=== PATIENT | female | born 1965 | race Caucasian/White ===

== ENCOUNTER → 2017-01-06 | Outpatient (CLI) | payer BC ==
--- NOTE | ~2017-01-06 | PUL ---
PATIENT'S NAME: LAI VELAZQUEZ [facility] AGE: 51 Y [address] ROOM: [place] [address] LOCATION: [facility] ADMIT DATE: 01/06/2017 Pulmonary DISCHARGE DATE: FAMILY PHYSICIAN: Linda Helm APRN ATTENDING PHYSICIAN: ROBERTO CALLES NAME OF PROCEDURE: Pulmonary Function Test DATE OF PROCEDURE: January 06, 2017 TECH: SHAYNA Garza REASON FOR EXAM: Reactive airway disease RESULTS: 1. FVC was 4.51 liters which is 108% of predicted and normal, FEV1 was 4.05 liters which is 122% of predicted and normal, and FEV1/FVC was 90% and normal. The flow volume curve did not reveal any significant airflow limitation. After bronchodilator administration FVC increased to 4.52 liters which is a less than 1% increase and FEV1 decreased to 3.85 liters. FEV1/FVC was 85%. 2. DLCO was 23.1 with an adjusted DLCO of 22.2 which is 69% of predicted and low. 3. Total lung capacity was 6.4 liters which is 107% of predicted and normal, and residual volume was 1.76 liters which is 82% of predicted and normal. PHYSICIAN INTERPRETATION: The patient has no airflow limitation and no significant bronchodilator response. Her diffusion capacity is mildly low. There is no evidence of restrictive lung disease. MD CLAYTON RAYA/hattie /[id number] dtt: 01/08/17 1624 , ROBERTO CALLES dtd: 01/08/17 1302
== END | disposition disaster alternative care site (69) ==
LOC: GRTH 13:00
DX: J45.909 Unspecified asthma, uncomplicated (principal)

== ENCOUNTER → 2017-02-02 | Outpatient (CLI) | payer BC ==
--- NOTE | ~2017-02-02 | ECHO ---
Transthoracic Echocardiography Report (TTE) Demographics Patient Name LAI VELAZQUEZ Date of Study 02/02/2017 Patient Number [id number] Visit Number [id number] Date of 1965 Room Number Accession Number [id number] Gender Female Age 51 year(s) Referring Volodymyr Escamilla Claims Manager Merlyn Richard RVT, Physician TABBY Hernandez Physician Interpreting [facility] Supervising Editor News Reel Physician Temi VELASQUEZ Supervising Ordering Physician Kimberley Hernandez MD/MLP Nurse Stress Glass Melt Operator Conclusions Contractility Score Summary Normal Left Ventricular contractility was noted. Summary The estimated left ventricular ejection fraction is 55-60% with normal internal dimension and wall thickness.RWMAs cannot be confidently commented on. The left atrial pressures are increased. The right atrial pressures are increased. Mild mitral regurgitation by color Doppler. Trivial TR. TDS. Procedure Type of Study TTE procedure:2D Echocardiogram. Procedure Date Date: 02/02/2017 Start: 01:39 PM Study Location: Inpatient Portable Technical Quality: Fair due to body habitus. Indications:Shortness of breath. Appropriate Use Criteria: 8 Patient Status: Routine Rhythm: NSR HR: 78 bpm BP: 141/89 mmHg M-Mode/2D Measurements LV Diastolic Dimension: 4.94 cm LV Systolic Dimension: 2.42 cm LV Septum Diastolic: 1.07 cm LV PW Diastolic: 1.09 cm AO Root Dimension: 3 cm Cardiac Output: 5.68 l/min AV Cusp Separation: 2.3 cm RV Diastolic Dimension: 3.39 cm LA volume: 79 ml LVOT: 2 cm RV Base: 3.83 cm LVOT VTI: 23.2 cm RV Mid: 3.39 cm LV Stroke volume: 72.85 ml TAPSE: 3.05 cm TDI-S': 14.6 cm/s Doppler Measurements AV Peak Velocity: 1.39 m/s MV Peak E-Wave: 0.9 m/s AV Peak Gradient: 7.73 mmHg MV Peak A-Wave: 0.71 m/s AV Mean Gradient: 6 mmHg MV E/A Ratio: 1.27 LVOT Peak Velocity: 1.1 m/s MV P1/2t: 74 msec TR Gradient:19.18 mmHg PV Peak Velocity: 1.15 m/s Estimated RAP:5 mmHg PV Peak Gradient: 5.29 mmHg Estimated RVSP: 24 mmHg Estimated PASP: 24.18 mmHg E' Septal Velocity: 0.1 m/s A' Septal Velocity: 0.1 m/s E' Lateral Velocity: 0.11 m/s A' Lateral Velocity: 0.12 m/s Findings Left Ventricle Normal LV size,wall thickness and function.WMAs cannot be confidently commented on. Diastolic assessment reveals normal relaxation. Right Ventricle Normal right ventricle structure and function. Left Atrium The left atrium is normal. Increased LA pressures. There is no evidence of patent foramen ovale or atrial septal defect by color Doppler. Right Atrium The right atrium is normal. IVC measures 2.05 cm with inspiratory collapse. Mitral Valve Mild mitral regurgitation by color Doppler. Aortic Valve Normal aortic valve structure and function. Tricuspid Valve Normal tricuspid valve structure and function. Trivial tricuspid regurgitation by color Doppler. Pulmonic Valve Normal pulmonic valve structure and function. Pericardial Effusion No evidence of pericardial effusion. Miscellaneous Visualized portions of the aortic root and ascending aorta appear normal in size. Pleural Effusion No evidence of pleural effusion. Contractility Score LV regional wall motion:(0-Non visualized 1-Normal 2-Hypokinesis 3-Akinesis 4-Dyskinesis 5-Aneurysm) Signature dtt: Temi Peña dtd: 02/02/17 4019 Physician Self Edit
== END | disposition disaster alternative care site (69) ==
LOC: GCAR 13:00
DX: J31.0 Chronic rhinitis (principal); J32.2 Chronic ethmoidal sinusitis; J34.2 Deviated nasal septum; I34.0 Nonrheumatic mitral (valve) insufficiency; R94.2 Abnormal results of pulmonary function studies; Z88.9 Allergy status to unspecified drugs, medicaments and biological substances

== ENCOUNTER → 2017-03-02 | Outpatient (CLI) | payer BC ==
--- NOTE | ~2017-03-02 | ECHO ---
Stress Echocardiography Report Demographics Patient Name LAI VELAZQUEZ Date of Study 03/02/2017 Patient Number [id number] Visit Number [id number] Date of 1965 Room Number Gender Female Number Age 51 year(s) Referring Casey Membreno Assistant Statistician Chay Horowitz RVT Physician Physician Interpreting Casey Membreno Medical Cost Consultant Physician Supervising Ordering Casey Membreno MD/SUMIT Physician Nurse Eneida Pepe RN Stress Electric Locomotive Crane Operator Conclusions Summary Dobutamine stress ECHO with definity. Bigeminal PVCs at rest. Resolution of PVCs with Dobutamine starting with 5 mcg. Achieved 82% MPHR with 40 mcg of Dobutamine and 1.5 mg of atropine. No chest pain. Pounding in chest with Dobutamine. No EKG changes of ischemia. The LV dimensions decrease appropriately with Dobutamine and there is no inducible ischemia. Procedure Type of Study Stress procedure:Pharm Stress Echo w/o Contrast. Procedure Date Date: 03/02/2017 Start: 10:07 AM Study Location: Echo Lab Technical Quality: Limited visualization Indications:Dyspnea/SOB. Appropriate Use Criteria: 9 Patient Status: Routine Contrast Medium: Definity. Amount - 8 ml HR: 85 bpm BP: 126/75 mmHg Stress Predicted HR: 171 bpm Contractility Score Rest LV regional wall motion:(0-Non visualized 1-Normal 2-Hypokinesis 3-Akinesis 4-Dyskinesis 5-Aneurysm) Signature dtt: Temi Peña dtd: 03/02/17 1007 Physician Self Edit
== END | disposition disaster alternative care site (69) ==
LOC: GCAR 09:00
DX: R06.02 Shortness of breath (principal); R06.00 Dyspnea, unspecified; R94.31 Abnormal electrocardiogram [ECG] [EKG]
CPT/HCPCS: J0461; J1250; Q9957